=== PATIENT | male | born 1950 | race Caucasian/White ===

== ENCOUNTER 2019-04-08 08:58 | Emergency (ER) | payer MEDICARE ==
[~2019-04-08] VITALS: Ht 182.9 cm; Wt 111.4 kg
[2019-04-08] MEDS ORDERED: NS 1,000 ML IV SCH (09:24)
[2019-04-08] MEDS ORDERED: ISOVUE-370 76% 100ML VIAL (Q9967) As Ordered ONE (09:42)
[2019-04-08 09:48] LABS: BASO % 0.5 % (0.0-1.0); EOS # 0.1 10^3/uL (0.0-0.50); EOS % 1.2 % (0.0-3.0); HEMATOCRIT 34.4 % (42.0-52.0); HEMOGLOBIN 11.9 g/dl (13.5-17.5); LYMPH # 1.1 10^3/uL (1.5-4.5); LYMPH % 18.1 % (24.0-44.0); MEAN CORPUSCULAR HEMOGLOBIN 32.2 pg (27.0-33.0); MEAN CORPUSCULAR HGB CONC 34.6 g/dl (32.0-36.5); MONO # 0.5 10^3/uL (0.0-0.8); MONO % 8.7 % (0.0-5.0); NEUTROPHILS # 4.2 10^3/uL (1.8-7.7); NEUTROPHILS % 71.2 % (36.0-66.0); PLATELET COUNT, AUTOMATED 180 10^3/uL (150-450); WHITE BLOOD COUNT 5.9 10^3/uL (4.0-10.0)
--- NOTE | 2019-04-08 10:09 | REP ---
CHEST, SINGLE VIEW: There is no evidence of acute infiltrate. No pleural effusion is seen. The heart is normal in size. The mediastinal silhouette is unremarkable. The visualized osseous structures are intact. There is mild calcification of the thoracic aorta. IMPRESSION: No acute pulmonary disease. Electronically Signed by Orville Martínez MD 04/12/2019 05:22 P
[2019-04-08 10:28] LABS: ALBUMIN 4.1 GM/DL (3.2-5.2); BILIRUBIN,DIRECT 0.3 MG/DL (0.0-0.2); BILIRUBIN,TOTAL 0.9 MG/DL (0.2-1.0); CK-MB VALUE MASS 3.7 NG/ML (<3.6); FREE T4 0.9 NG/DL (0.76-1.46); MB/CK RELATIVE INDEX 1.41 (< OR =4); THYROID STIMULATING HORMONE 1.24 uIU/ML (0.358-3.740); TOTAL PROTEIN 6.9 GM/DL (6.4-8.2); TROPONIN I 0.02 NG/ML (< 0.10)
--- NOTE | 2019-04-08 10:28 | REP ---
CT ANGIOGRAM CHEST: There is no CT evidence of pulmonary embolism. There is no thoracic aortic aneurysm or dissection with scattered atherosclerotic calcification. There is no evidence of mediastinal, hilar, or chest wall lymphadenopathy. The heart is not enlarged. There is no pleural or pericardial effusion. No infiltrate is seen in either lung. There are several small cysts in the liver. There are degenerative changes of the spine. IMPRESSION: No CT evidence of pulmonary embolism or aortic dissection. Electronically Signed by Orville Martínez MD 04/12/2019 05:23 P
[2019-04-08] MEDS ORDERED: CITRTAB18 PO (10:30)
[2019-04-08] MEDS ORDERED: MAGN1CAP PO (10:30)
[2019-04-08] MEDS ORDERED: ALTA1CAP4 PO (10:30)
[2019-04-08] MEDS ORDERED: ASPI81TA85 PO (10:30)
[2019-04-08] MEDS ORDERED: KP F1200 PO (10:30)
[2019-04-08] MEDS ORDERED: CENT1TAB PO (10:30)
[2019-04-08] MEDS ORDERED: [UNRECOGNIZED DRUG - CODE] PO ×2 (10:30→10:31)
[2019-04-08] MEDS ORDERED: CILO50TA PO (10:30)
[2019-04-08] MEDS ORDERED: ATOR80TA59 PO (10:30)
[2019-04-08] MEDS ORDERED: CARV6.25 PO (10:30)
[2019-04-08 10:35] LABS: INR 1.02; PROTHROMBIN TIME 13.1 SECONDS (11.8-14.0)
[2019-04-08 10:36] LABS: PARTIAL THROMBOPLASTIN TIME 34.2 SECONDS (25.0-38.4)
[2019-04-08] MEDS ORDERED: CLOPIDOGREL 75 MG TAB PO ONE (11:00)
[2019-04-08 11:45] VITALS: BP 144/73
--- NOTE | 2019-04-09 09:28 | ECGEPIP ---
[facility] - ED Test Date: 2019-04-08 Pat Name: WANDA VARGAS Department: Room: - Gender: Male [employer]: : 1950 Requested By: Karon Ford Order Number: [id number] Reading MD: Sobia Can Measurements Intervals [place] Rate: 70 P: 53 [place]: 194 QRS: 61 QRSD: 110 T: -16 QT: 389 QTc: 420 Interpretive Statements SINUS RHYTHM NSTTW abnormalities PRWP No prior Electronically Signed on 04-09-2019 9:28:11 EDT by Sobia Can
== END 2019-04-08 12:02 | disposition short-term general hospital (02) ==
LOC: M ED 08:58 → EDBD 08:58 → M ED 12:02
DX: I20.0 Unstable angina (principal); I10 Essential (primary) hypertension; E78.5 Hyperlipidemia, unspecified; I25.2 Old myocardial infarction; Z79.899 Other long term (current) drug therapy; Z79.82 Long term (current) use of aspirin; Z88.5 Allergy status to narcotic agent
CPT/HCPCS: 36415; 71045; 71275; 80047; 80076; 82550; 82553; 83690; 83880; 84439; 84443; 84484; 85025; 85610; 85730; 93005; 93041; 94760; 99285; Q9967